=== PATIENT | female | born 1955 | race Hispanic/Latino ===

== ENCOUNTER 2023-05-07 02:46 | Emergency (ER) | payer MEDICARE ==
[~2023-05-07] VITALS: Ht 157.5 cm; Wt 68.0 kg
[2023-05-07] MEDS ORDERED: ACETAMINOPHEN 500 MG TABLET PO ONE (03:30)
[2023-05-07] MEDS ORDERED: ONDANSETRON ODT 4MG TAB SL ONE (03:30)
[2023-05-07 03:44] LABS: BASOPHILS # (AUTO) 0.03 K/uL (0.00-0.20); BASOPHILS % (AUTO) 0.4 % (0.0-5.0); EOSINOPHILS # (AUTO) 0.02 K/uL (0.00-0.70); EOSINOPHILS % (AUTO) 0.2 % (0.0-8.0); HEMATOCRIT 33.1 % (36-48); IMMATURE GRANULOCYTE ABSOLUTE 0.03 K/uL (0-1); LYMPHOCYTES # (AUTO) 0.9 K/uL (1.0-4.8); LYMPHOCYTES % (AUTO) 10.8 % (21.0-51.0); MEAN CORPUSCULAR HEMOGLOBIN 30.1 pg (27.0-33.0); MEAN CORPUSCULAR HGB CONC 33.2 g/dL (32.0-36.0); MEAN CORPUSCULAR VOLUME 90.4 fL (79-99); MONOCYTES # (AUTO) 0.5 K/uL (0.1-1.0); MONOCYTES % (AUTO) 5.6 % (3.0-13.0); NEUTROPHILS # (AUTO) 6.6 K/uL (1.8-7.7); NEUTROPHILS % (AUTO) 82.6 % (40.0-77.0); PLATELET COUNT (AUTO) 258 K/uL (130-400); RED BLOOD CELL COUNT(AUTO) 3.66 MIL/uL (4.00-5.50)
[2023-05-07 04:00] LABS: ALBUMIN 3.8 g/dL (3.5-5.0); BILIRUBIN,TOTAL 0.6 mg/dL (0.2-1.0); CREATININE 0.6 mg/dL (0.5-1.5); TOTAL PROTEIN, SERUM 7.8 g/dL (6.0-8.3)
[2023-05-07] MEDS ORDERED: ONDA-104 PO (04:25)
[2023-05-07] MEDS ORDERED: IBUP-1493 PO (04:25)
[2023-05-07] MEDS ORDERED: POTASSIUM BICARB/CIT AC 25 MEQ TABLET.EFF PO ONE (04:30)
[2023-05-07 04:33] VITALS: BP 154/88; PULSE 85; RESP 16; O2SAT 98
== END 2023-05-07 04:35 | disposition home or self-care (01) ==
LOC: EDH 02:46
DX: R51.9 Headache, unspecified (principal); R11.2 Nausea with vomiting, unspecified; I10 Essential (primary) hypertension
CPT/HCPCS: 36415; 80053; 85025

== ENCOUNTER 2023-05-07 02:54 | Emergency (ER) | payer MEDICARE ==
[2023-05-07 02:55] VITALS: BP 161/96; PULSE 88; RESP 16; O2SAT 98
[2023-05-07] MEDS ORDERED: IBUP-1493 PO (04:25)
[2023-05-07] MEDS ORDERED: ONDA-104 PO (04:25)
== END 2023-05-07 02:56 | disposition home or self-care (01) ==
LOC: EDH 02:54
DX: R51.9 Headache, unspecified (principal); Z53.21 Procedure and treatment not carried out due to patient leaving prior to being seen by health care provider

== ENCOUNTER 2023-08-28 08:03 | Day surgery (SDC) | payer MEDICARE ==
[2023-08-27 15:33] VITALS: BP 126/70; PULSE 101; RESP 16
[2023-08-27 15:42] LABS: BASOPHILS # (AUTO) 0.02 K/uL (0.00-0.20); BASOPHILS % (AUTO) 0.2 % (0.0-5.0); HEMATOCRIT 30.1 % (36-48); IMMATURE GRANULOCYTE ABSOLUTE 0.05 K/uL (0-1); LYMPHOCYTES # (AUTO) 0.6 K/uL (1.0-4.8); LYMPHOCYTES % (AUTO) 5.8 % (21.0-51.0); MEAN CORPUSCULAR HEMOGLOBIN 29.3 pg (27.0-33.0); MEAN CORPUSCULAR HGB CONC 31.2 g/dL (32.0-36.0); MEAN CORPUSCULAR VOLUME 93.8 fL (79-99); MONOCYTES # (AUTO) 0.5 K/uL (0.1-1.0); MONOCYTES % (AUTO) 4.8 % (3.0-13.0); NEUTROPHILS % (AUTO) 88.7 % (40.0-77.0); PLATELET COUNT (AUTO) 252 K/uL (130-400); RED BLOOD CELL COUNT(AUTO) 3.21 MIL/uL (4.00-5.50); WHITE BLOOD COUNT (AUTO) 10.1 K/uL (4.8-10.8)
[2023-08-27 15:50] LABS: INR 1.05 (0.85-1.15); PROTHROMBIN TIME 12.1 SEC (9.6-11.6)
[2023-08-27 15:52] LABS: CREATININE 0.6 mg/dL (0.5-1.5)
[2023-08-27 15:55] LABS: POTASSIUM 2.8 mmol/L (3.5-5.1)
[2023-08-28] VITALS (19 sets, daily range): BP systolic 128–145; BP diastolic 59–90; PULSE 78–92; RESP 14–17
[~2023-08-28] VITALS: Ht 160 cm; Wt 50.8 kg
[~2023-08-28 08:03] MED LIST: ACET-2743 PO; BUSP15 PO; LOSA1TAB37 PO
[2023-08-28] MEDS: CEFAZOLIN SODIUM 2 GM VIAL ONE (09:02)
[2023-08-28] MEDS: LACTATED RINGERS 1000ML 1,000 ML IV ONE (09:02)
[2023-08-28 09:26] LABS: CREATININE 0.6 mg/dL (0.5-1.5)
[2023-08-28 09:31] LABS: POTASSIUM 2.5 mmol/L (3.5-5.1)
[2023-08-28] MEDS ORDERED: POTASSIUM CHLORIDE 20MEQ/100ML 100 ML IV ONE (10:13)
[2023-08-28] MEDS ORDERED: MIDAZOLAM HCL 1 MG/ML 2ML VIAL ONE (10:22)
[2023-08-28] MEDS ORDERED: PROPOFOL 10 MG/ML 20ML VIAL IV ONE (10:23)
[2023-08-28] MEDS ORDERED: SUCCINYLCHOLINE CHLORIDE 20 MG/ML 10 ML VIAL ONE (10:23)
[2023-08-28] MEDS: BUPIVACAINE/PF 0.5% 30ML VIAL ONE (10:48)
[2023-08-28] MEDS ORDERED: FAMOTIDINE 20MG VIAL IV ONE (10:51)
[2023-08-28] MEDS ORDERED: NEOSTIGMINE METHYLSULFATE 1MG/ML IV ONE (11:04)
[2023-08-28] MEDS ORDERED: GLYCOPYRROLATE 0.2 MG/ML 5 ML VIAL ONE (11:04)
[2023-08-28] MEDS ORDERED: TRAM50TA4 PO (11:06)
[2023-08-28] MEDS ORDERED: DOCU-116 PO (11:06)
[2023-08-28] MEDS: ONDANSETRON 4MG INJ ONE ×2 (11:59→12:00)
== END 2023-08-28 13:50 | disposition home or self-care (01) ==
LOC: DAH 08:03
PROVIDERS: ATTEND Surgery
DX: C34.01 Malignant neoplasm of right main bronchus (principal); I10 Essential (primary) hypertension; E87.6 Hypokalemia; Z79.899 Other long term (current) drug therapy; Z90.710 Acquired absence of both cervix and uterus; Z98.890 Other specified postprocedural states; Z80.6 Family history of leukemia; Z79.01 Long term (current) use of anticoagulants
CPT/HCPCS: 93005; 80048 ×2; 85025; 85610; 36415 ×2; 36561; 71045; 77001; A4663; A4606; A4452; C1788; J7120; J3490 ×2; J0330; J2250; J2704; J2405 ×2; J3480; J2710; J0665; J1644; J0690; A4930; A4215; A4223; A4222; A4221; A4600; 76000

== ENCOUNTER 2023-12-08 18:26 | Emergency (ER) | payer MEDICARE ==
[~2023-12-08] VITALS: Ht 157.5 cm; Wt 46.3 kg
[~2023-12-08 18:26] MED LIST changes: +DOCU-116 PO; +TRAM50TA4 PO
[2023-12-08 19:27] LABS: BASOPHILS # (AUTO) 0.03 K/uL (0.00-0.20); BASOPHILS % (AUTO) 0.4 % (0.0-5.0); EOSINOPHILS # (AUTO) 0.02 K/uL (0.00-0.70); EOSINOPHILS % (AUTO) 0.2 % (0.0-8.0); HEMATOCRIT 31.9 % (36-48); IMMATURE GRANULOCYTE ABSOLUTE 0.05 K/uL (0-1); LYMPHOCYTES # (AUTO) 0.5 K/uL (1.0-4.8); LYMPHOCYTES % (AUTO) 6.2 % (21.0-51.0); MEAN CORPUSCULAR HEMOGLOBIN 31.3 pg (27.0-33.0); MEAN CORPUSCULAR HGB CONC 31.7 g/dL (32.0-36.0); MEAN CORPUSCULAR VOLUME 98.8 fL (79-99); MONOCYTES # (AUTO) 0.6 K/uL (0.1-1.0); MONOCYTES % (AUTO) 6.7 % (3.0-13.0); NEUTROPHILS # (AUTO) 7.1 K/uL (1.8-7.7); NEUTROPHILS % (AUTO) 85.9 % (40.0-77.0); PLATELET COUNT (AUTO) 175 K/uL (130-400); RED BLOOD CELL COUNT(AUTO) 3.23 MIL/uL (4.00-5.50); RED CELL DISTRIBUTION WIDTH 15.2 % (11.0-15.5); WHITE BLOOD COUNT (AUTO) 8.2 K/uL (4.8-10.8)
[2023-12-08] MEDS: FAMOTIDINE 20MG VIAL IV ONE (19:33)
[2023-12-08 19:46] LABS: ALBUMIN 3.2 g/dL (3.5-5.0); BILIRUBIN,TOTAL 0.7 mg/dL (0.2-1.0); CREATININE 0.5 mg/dL (0.5-1.0); TOTAL PROTEIN, SERUM 7.3 g/dL (6.0-8.3)
[2023-12-08 19:58] LABS: POTASSIUM 2.9 mmol/L (3.5-5.1)
[2023-12-08] MEDS: POTASSIUM BICARB/CIT AC 25 MEQ TABLET.EFF PO STA (21:18)
[2023-12-08 21:23] VITALS: BP 145/87; PULSE 93; RESP 18; O2SAT 96
== END 2023-12-08 23:19 | disposition left against medical advice (07) ==
LOC: EDH 18:26
DX: R07.9 Chest pain, unspecified (principal); E87.6 Hypokalemia; I10 Essential (primary) hypertension; Z88.1 Allergy status to other antibiotic agents
CPT/HCPCS: 99285; 96374; 71045; 84484; 80053; 85025; 36415; 93005; J3490